=== PATIENT | male | born 1995 | race Caucasian/White ===

== ENCOUNTER 2017-12-22 15:12 | Emergency (ER) | payer OTHER ==
[2017-12-22 15:55] VITALS: BP 135/76
--- NOTE | 2017-12-22 16:21 | UC ---
FLU HPI - HPI Summary HPI Summary: Pt presents with fever, chills, body aches, and sore throat since yesterday. He is a student at and has many sick contacts with strep and the flu. He has not taken anything for his symptoms. Denies cough, SOB, chest pain, abdominal pain, n/v/d/c. - History of Current Complaint Chief Complaint: UCGeneralIllness Stated Complaint: FLU-LIKE SYM Time Seen by Provider: 12/22/17 16:21 Hx Obtained From: Patient Onset/Duration: Sudden Onset Severity Currently: Severe Severity Initially: Severe Pain Intensity: 7 Pain Scale Used: 0-10 Numeric - Allergy/Home Medications Allergies/Adverse Reactions: Allergies Allergy/AdvReac Type Severity Reaction Status Date / Time shellfish derived Allergy Itching Verified 12/22/17 15:56 PMH/Surg Hx/FS Hx/Imm Hx Previously Healthy: Yes - Surgical History Surgical History: None - Social History Alcohol Use: Weekly Substance Use Type: None Smoking Status (MU): Never Smoked Tobacco Review of Systems Constitutional: Fever, Fatigue, Other - Body aches Skin: Negative Eyes: Negative ENT: Sore Throat Respiratory: Negative Cardiovascular: Negative Gastrointestinal: Negative Musculoskeletal: Negative Neurological: Negative Psychological: Negative All Other Systems Reviewed And Are Negative: Yes Physical Exam - Summary Physical Exam Summary: GENERAL: Mildly ill appearing. NAD. WDWN. No pain distress. SKIN: No rashes, sores, ulcers, masses, lesions. No clubbing or cyanosis. HEENT: Head: AT/NC Eyes: EOM intact. Conjunctiva clear without inflammation or discharge. Ears: Hearing grossly normal. TMs intact, no bulging, erythema, or edema. Nose: Nasal mucosa pink and moist. NTTP maxillary and frontal sinus. Throat: Posterior oropharynx with mild erythema. 2+ tonsils. No exudates. Uvula midline. NECK: Supple. Nontender. No lymphadenopathy. CHEST: CTAB. No r/r/w. No accessory muscle use. Breathing comfortably and in no distress. CV: RRR. Without m/r/g. Pulses intact. Brisk cap refill. NEURO: Alert. CN II-XII grossly intact. PSYCH: Age appropriate behavior. Triage Information Reviewed: Yes Vital Signs: Initial Vital Signs Temp 102 F 12/22/17 15:52 Pulse 79 02/25/18 15:52 Resp 16 12/22/17 15:52 BP 135/76 12/22/17 15:52 Pulse Ox 100 12/22/17 15:52 Flu Course/Dx - Course Course Of Treatment: POC flu and strep negative. Given his sick contacts - will cover him with tamiflu and azithromycin and test for mono. He says he has been told he tested positive for a "past infection" of mono. - Differential Dx/Diagnosis Provider Diagnoses: Influenza. Pharyngitis. Fever Discharge - Discharge Plan Condition: Stable Disposition: HOME Prescriptions: Azithromycin TAB* [Zithromax TAB (Z-MOLLY) 250 mg #6 tabs] 2 tab PO .TODAY, THEN 1 DAILY #1 molly Oseltamivir CAP* [Tamiflu CAP*] 75 mg PO BID #10 cap Patient Education Materials: Mononucleosis (ED), Influenza (DC) Referrals: Fran Terry [Primary Care Provider] - Additional Instructions: If you develop a fever, shortness of breath, chest pain, new or worsening symptoms - please call your PCP or go to the ED. 1) May take tylenol or ibuprofen as needed for fever 2) Rest and drink plenty of fluids!
[2017-12-22] MEDS ORDERED: Oseltamivir CAP* 75 MG CAP PO ONE (17:22)
--- NOTE | 2017-12-23 18:17 | UC ---
- Progress Note Progress Note: neg mono no change Elizabeth 12/23/2017
== END 2017-12-22 17:40 | disposition home or self-care (01) ==
LOC: UCEAST 15:12
DX: J11.1 Influenza due to unidentified influenza virus with other respiratory manifestations (principal); R50.9 Fever, unspecified
CPT/HCPCS: 36415; 86308; 86664; 86665; 87502; 87651; 99212; A9270-GY; G0463